=== PATIENT | male | born 1965 | race American Indian/Alaskan Native ===

== ENCOUNTER 2019-07-23 07:43 | Emergency (ER) | payer OTHER ==
--- NOTE | 2019-07-23 08:27 | XRay Report ---
CHEST 2 VIEWS INDICATION / CLINICAL INFORMATION: cough with dizziness. COMPARISON: None available. FINDINGS: SUPPORT DEVICES: None. HEART / MEDIASTINUM: No significant abnormality. LUNGS / PLEURA: Symmetric prominence of vascular and interstitial markings in both lungs. No focal ai rspace opacity or pleural fluid. No pneumothorax. ADDITIONAL FINDINGS: No significant additional findings. IMPRESSION: Mildly prominent vascular markings and interstitial reticulation in both lungs, nonspecific and of un certain chronicity. Signer Name: Jose Mitchell MD Signed: 07/23/2019 8:23 AM Workstation Name: [id number]
--- NOTE | 2019-07-23 09:51 | Emergency Department Report ---
- General Chief Complaint: Upper Respiratory Infection Stated Complaint: FLU SYM/HEADACHE/DIZZINESS Time Seen by Provider: 07/23/19 09:41 Source: patient Mode of arrival: Ambulatory Limitations: No Limitations - History of Present Illness Initial Comments: Patient is 53 years old male with no significant positives medical history except for heavy smoking. Patient presented to the ER complaining of 5 day history of cough, productive with greenish sputum associated with generalized body myalgia. Patient denied any chest pain, headache, weakness numbness or tingling sensation. MD Complaint: cough, nasal congestion -: days(s) (5) Severity: moderate Consistency: constant Context: sick contacts Associated Symptoms: fever, chills, myalgias, rhinorrhea, nasal congestion, cough. denies: headache, stiff neck - Related Data Previous Rx's Medication Instructions Recorded Last Taken Type Cyclobenzaprine [Flexeril 10 MG 10 mg PO BID PRN #14 tablet 06/08/16 Unknown Rx TAB] traMADoL [Ultram 50 MG tab] 50 mg PO Q6HR PRN #20 tablet 06/08/16 Unknown Rx Allergies Allergy/AdvReac Type Severity Reaction Status Date / Time Penicillins Allergy Anaphylaxis Verified 06/17/13 09:32 ED Review of Systems ROS: Stated complaint: FLU SYM/HEADACHE/DIZZINESS Other details as noted in HPI Constitutional: chills, fever Respiratory: cough. denies: shortness of breath, SOB with exertion, SOB at rest, wheezing Cardiovascular: denies: chest pain, palpitations Gastrointestinal: denies: abdominal pain, nausea, vomiting Neurological: denies: headache, weakness, numbness, paresthesias, confusion ED Past Medical Hx - Past Medical History Previous Medical History?: Yes Additional medical history: abdominal hernia, Right inquinal hernia - Surgical History Past Surgical History?: Yes Additional Surgical History: Abd. Hernia repair, Right inquinal hernia repair - Social History Smoking Status: Current Every Day Smoker Substance Use Type: Alcohol - Medications Home Medications: Home Medications Medication Instructions Recorded Confirmed Last Taken Type Cyclobenzaprine [Flexeril 10 MG 10 mg PO BID PRN #14 tablet 06/08/16 Unknown Rx TAB] traMADoL [Ultram 50 MG tab] 50 mg PO Q6HR PRN #20 tablet 06/08/16 Unknown Rx ED Physical Exam - General Limitations: No Limitations General appearance: alert, in no apparent distress - Head Head exam: Present: atraumatic, normocephalic, normal inspection - Eye Eye exam: Present: normal appearance - ENT ENT exam: Present: normal exam, normal orophraynx, mucous membranes moist - Neck Neck exam: Present: normal inspection, full ROM. Absent: tenderness, meningismus, lymphadenopathy, thyromegaly - Respiratory Respiratory exam: Present: normal lung sounds bilaterally - Cardiovascular Cardiovascular Exam: Present: regular rate, normal rhythm, normal heart sounds - GI/Abdominal GI/Abdominal exam: Present: soft, normal bowel sounds. Absent: distended, tenderness, guarding, rebound, rigid, organomegaly, mass, bruit, pulsatile mass, hernia - Extremities Exam Extremities exam: Present: normal inspection, full ROM, normal capillary refill. Absent: pedal edema, calf tenderness - Back Exam Back exam: Present: normal inspection, full ROM. Absent: CVA tenderness (R), CVA tenderness (L) - Neurological Exam Neurological exam: Present: alert, oriented X3, CN II-XII intact, normal gait, reflexes normal - Psychiatric Psychiatric exam: Present: normal mood - Skin Skin exam: Present: warm, intact, normal color ED Course Vital Signs 07/23/19 07:51 Temperature 99.3 F Pulse Rate 98 H Respiratory 20 Rate Blood Pressure 118/75 O2 Sat by Pulse 93 Oximetry ED Medical Decision Making - Radiology Data Radiology results: report reviewed Chest x-ray is unremarkable. Critical care attestation.: If time is entered above; I have spent that time in minutes in the direct care of this critically ill patient, excluding procedure time. ED Disposition Clinical Impression: Acute bronchitis Disposition: DC-01 TO HOME OR SELFCARE Is pt being admited?: No Condition: Stable Instructions: Acute Bronchitis (ED) Referrals: [facility] [Provider Group] - 3-5 Days
[2019-07-23 10:22] VITALS: BP 114/67
[2019-07-23] MEDS ORDERED: ACETAMINOPHEN 500 MG TAB PO ONE (10:24)
== END 2019-07-23 10:54 | disposition home or self-care (01) ==
LOC: ED 07:43
DX: J20.9 Acute bronchitis, unspecified (principal); F17.200 Nicotine dependence, unspecified, uncomplicated; Z79.899 Other long term (current) drug therapy; Z88.0 Allergy status to penicillin
CPT/HCPCS: 71046

== ENCOUNTER 2019-07-29 15:20 | Emergency (ER) | payer OTHER ==
--- NOTE | 2019-07-29 19:08 | Emergency Department Report ---
Chief Complaint: Upper Respiratory Infection Stated Complaint: BRONCHITIS/FLU SX Time Seen by Provider: 07/29/19 19:03 - HPI History of Present Illness: 53 y/o male comes in for Cough and headache times 1 week. Was seen here 07/23/19. Has history of breathing issue. Pmh none. - Exam Vital Signs: Vital Signs 07/29/19 15:29 Temperature 98.5 F Pulse Rate 92 H Respiratory 16 Rate Blood Pressure 127/87 O2 Sat by Pulse 96 Oximetry Physical Exam: AxO times 3 NAD Chest CTAB Heart RRR. ambulating well MSE screening note: Focused history and physical exam performed. Due to findings the following was ordered: ED Disposition for MSE Clinical Impression: Viral syndrome Disposition: MED SCREENING EXAM-LEFT Is pt being admited?: No Does the pt Need Aspirin: No Condition: Stable Instructions: Viral Syndrome (ED) Additional Instructions: Take Claritin or Zyretec Ibuprofen or Tylenol. Follow up with a primary Care. Referrals: PRIMARY CARE, [Primary Care Provider] - 3-5 Days Forms: Work/School Release Form(ED)
[2019-07-29 19:09] VITALS: BP 133/83
== END 2019-07-29 19:19 | disposition left against medical advice (07) ==
LOC: ED 15:20
DX: B34.9 Viral infection, unspecified (principal)
CPT/HCPCS: 99281